=== PATIENT | female | born 1990 | race Two or more races ===

== ENCOUNTER 2017-07-22 13:08 | Emergency (ER) | payer SELFPAY ==
[~2017-07-22] VITALS: Ht 160 cm; Wt 99.8 kg
[2017-07-22 14:59] VITALS: BP 122/72
--- NOTE | 2017-07-22 15:00 | NUR ---
Patient discharged to home in stable conditon. Written and verbal after care instructions given. Patient verbalizes understanding of instructions.
== END 2017-07-22 15:00 | disposition home or self-care (01) ==
LOC: ER 13:08
DX: S93.401A Sprain of unspecified ligament of right ankle, initial encounter (principal); J45.909 Unspecified asthma, uncomplicated; X50.9XXA Other and unspecified overexertion or strenuous movements or postures, initial encounter; Y93.89 Activity, other specified; Y92.9 Unspecified place or not applicable; Y99.9 Unspecified external cause status
CPT/HCPCS: 73610; A4663